=== PATIENT | male | born 1965 | race Caucasian/White ===

== ENCOUNTER 2017-06-20 19:38 | Emergency (ER) | payer BC ==
[~2017-06-20] VITALS: Ht 180.3 cm; Wt 99.8 kg
== END 2017-06-20 22:07 | disposition home or self-care (01) ==
LOC: ED 19:38
DX: S93.402A Sprain of unspecified ligament of left ankle, initial encounter (principal); W10.8XXA Fall (on) (from) other stairs and steps, initial encounter; Y93.89 Activity, other specified; Y92.89 Other specified places as the place of occurrence of the external cause; Y99.9 Unspecified external cause status